=== PATIENT | male | born 1955 | race Native Hawaiian/Other Pacific Islander ===

== ENCOUNTER 2016-08-01 14:11 | Outpatient (CLI) | payer OTHER | END 2016-08-01 14:24 | disposition short-term general hospital (02) | LOC: AMB 14:11 | DX: R07.81 Pleurodynia (principal) | CPT/HCPCS: A0425; A0429 ==

== ENCOUNTER 2016-08-01 14:28 | Emergency (ER) | payer OTHER ==
[~2016-08-01] VITALS: Ht 172.7 cm; Wt 79.4 kg
== END 2016-08-01 18:00 | disposition home or self-care (01) ==
LOC: ED 14:28
DX: S22.42XA Multiple fractures of ribs, left side, initial encounter for closed fracture (principal); Y04.2XXA Assault by strike against or bumped into by another person, initial encounter; Y93.89 Activity, other specified; Y92.89 Other specified places as the place of occurrence of the external cause; Y99.8 Other external cause status; S09.8XXA Other specified injuries of head, initial encounter; S00.83XA Contusion of other part of head, initial encounter
CPT/HCPCS: 90471; 90715; 96372; 99283; J1885

== ENCOUNTER 2020-03-27 10:00 | Emergency (ER) | payer OTHER ==
[~2020-03-27] VITALS: Ht 172.7 cm; Wt 86.2 kg
[2020-03-27 10:00] VITALS: TEMP 97.9
[2020-03-27 12:06] VITALS: BP 148/75
== END 2020-03-27 12:06 ==
LOC: ED 10:09
DX: S22.32XA Fracture of one rib, left side, initial encounter for closed fracture (principal); S02.2XXA Fracture of nasal bones, initial encounter for closed fracture; Y04.2XXA Assault by strike against or bumped into by another person, initial encounter; Y92.89 Other specified places as the place of occurrence of the external cause
CPT/HCPCS: 96372; 99283; J1885

== ENCOUNTER 2020-12-26 16:31 | Outpatient (CLI) | payer OTHER | END 2020-12-26 20:10 | disposition home or self-care (01) | LOC: RAD 16:31 | PROVIDERS: ATTEND Family Medicine | DX: R05.9 Cough, unspecified (principal); F17.200 Nicotine dependence, unspecified, uncomplicated ==

== ENCOUNTER 2021-03-03 12:02 | Emergency (ER) | payer OTHER ==
[~2021-03-03] VITALS: Ht 172.7 cm; Wt 90.7 kg
[2021-03-03 12:13] VITALS: TEMP 97.9
[2021-03-03 13:03] LABS: POTASSIUM 4.2 mmol/L (3.6-5.2)
[2021-03-03 13:08] LABS: PLATELET COUNT 219 K/uL (142-355)
[2021-03-03 13:22] LABS: PARTIAL THROMBOPLASTIN TIME 28.5 SECONDS (24.5-33.6)
[2021-03-03 16:16] VITALS: BP 126/74
== END 2021-03-03 16:16 | disposition home or self-care (01) ==
LOC: ED 12:02
PROVIDERS: Emergency Medicine
DX: J18.9 Pneumonia, unspecified organism (principal); U07.1 COVID-19; E87.1 Hypo-osmolality and hyponatremia; E86.0 Dehydration; R06.02 Shortness of breath; F17.210 Nicotine dependence, cigarettes, uncomplicated
CPT/HCPCS: 80053; 83880; 84484; 85027; 85379; 85610; 85730; 87635; 93005; 96360; 96372; 99284; J0696; J1100; Q9963; U0003

== ENCOUNTER 2021-07-07 12:29 | Outpatient (CLI) | payer OTHER | END 2021-07-07 19:01 | disposition home or self-care (01) | LOC: RAD 12:29 | PROVIDERS: ATTEND Family Medicine | DX: M25.532 Pain in left wrist (principal); M79.642 Pain in left hand ==

== ENCOUNTER 2022-04-04 18:16 | Emergency (ER) | payer OTHER ==
[~2022-04-04] VITALS: Ht 172.7 cm; Wt 68.0 kg
[2022-04-04 22:24] VITALS: BP 156/70; TEMP 97.8
== END 2022-04-04 22:24 | disposition short-term general hospital (02) ==
LOC: ED 18:16
DX: S22.42XA Multiple fractures of ribs, left side, initial encounter for closed fracture (principal); S27.0XXA Traumatic pneumothorax, initial encounter; S80.02XA Contusion of left knee, initial encounter; S40.212A Abrasion of left shoulder, initial encounter; S80.212A Abrasion, left knee, initial encounter; S01.01XA Laceration without foreign body of scalp, initial encounter; S42.032A Displaced fracture of lateral end of left clavicle, initial encounter for closed fracture; Z11.52 Encounter for screening for COVID-19; V11.0XXA Pedal cycle driver injured in collision with other pedal cycle in nontraffic accident, initial encounter; Y93.55 Activity, bike riding; Y92.480 Sidewalk as the place of occurrence of the external cause
CPT/HCPCS: 87635; 96361; 96374; 96375; 99285; J2270; J2405; U0003

== ENCOUNTER 2022-04-10 07:50 | Emergency (ER) | payer OTHER ==
[~2022-04-10] VITALS: Ht 172.7 cm; Wt 68.0 kg
[2022-04-10 08:16] VITALS: BP 179/69; TEMP 98
== END 2022-04-10 08:16 | disposition home or self-care (01) ==
LOC: ED 07:50
DX: Z97.8 Presence of other specified devices (principal); V00-Y99 External causes of morbidity; Y93.55 Activity, bike riding; Y92.480 Sidewalk as the place of occurrence of the external cause
CPT/HCPCS: 99281

== ENCOUNTER 2022-06-23 16:18 | Emergency (ER) | payer BC, OTHER ==
[~2022-06-23] VITALS: Ht 172.7 cm; Wt 68.0 kg
[2022-06-23 17:10] VITALS: BP 174/84; TEMP 98.4
== END 2022-06-23 17:10 | disposition home or self-care (01) ==
LOC: ED 16:18
DX: S01.01XA Laceration without foreign body of scalp, initial encounter (principal); S50.12XA Contusion of left forearm, initial encounter; S50.11XA Contusion of right forearm, initial encounter; Y04.8XXA Assault by other bodily force, initial encounter
CPT/HCPCS: 99282